=== PATIENT | male | born 1950 ===

== ENCOUNTER 2025-06-06 16:57 | Emergency (ER) | payer OTHER, MEDICARE, BC ==
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
[2025-06-06 17:12] VITALS: BP 128/87; PULSE 91; RESP 18; TEMP 97.9
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
== END 2025-06-06 18:30 | disposition home or self-care (01) ==
LOC: EC 16:57
DX: Z04.1 Encounter for examination and observation following transport accident (principal); V89.2XXA Person injured in unspecified motor-vehicle accident, traffic, initial encounter
CPT/HCPCS: 70450; 71046; 72125; 99284